=== PATIENT | female | born 1965 | race Caucasian/White ===

== ENCOUNTER 2016-12-07 07:15 | Day surgery (SDC) | payer OTHER ==
[~2016-12-07] VITALS: Ht 167.6 cm; Wt 75.3 kg
[2016-12-07 08:38] VITALS: Ht 167.6 cm; Wt 75.3 kg
[2016-12-07] MEDS ORDERED: LIDOCAINE 2% (SDV) 5 ML INJ ONE (09:11)
[2016-12-07] MEDS ORDERED: PROPOFOL 40 ML ONE (09:11)
[2016-12-07 09:17] VITALS: BP 124/80; PULSE 74; RESP 18
[2016-12-07] MEDS ORDERED: HYDROCODONE (09:17)
[2016-12-07] MEDS ORDERED: SPRIVA (09:17)
[2016-12-07] MEDS ORDERED: MONTELUKAST (09:17)
[2016-12-07] MEDS ORDERED: CALCIUM CARBONATE (09:17)
[2016-12-07] MEDS ORDERED: INHALER (09:17)
--- NOTE | 2016-12-07 09:46 | OPPN ---
Date/Time of Note Date/Time of Note DATE: 12/07/16 TIME: 09:40 Proc Note GI Procedure date: Dec 07, 2016 Pre-procedure Diagnosis History of dysphagia and vomiting rule out gastroesophageal reflux disease rule out peptic ulcer disease Post-procedure Diagnosis Mild reflux esophagitis and gastric erosions Operation Performed EGD Surgeon: JOSE PHELAN MD Anesthesiologist: TREVER ALBARRAN Estimated blood loss: none Transfusion Required: no Specimens Gastric biopsy and esophageal biopsy Complications: no Complications None Indications History of nausea vomiting and dysphagia rule out gastroesophageal reflux disease rule out peptic ulcer disease Operative\Procedure Findings Mild reflux esophagitis and gastric erosions Procedure Description After informed written consent is obtained patient was ostial in the left lateral side intravenous anesthesia was given by anesthesiologist Dr. Ethan Haddad. When the patient become somnolent Olympus video upper endoscope was introduced into the oropharynx then into the esophagus esophagus showed minimal reflux esophagitis biopsies were obtained to rule out Bansal's esophagus [place] with the stem was advanced into the stomach multiple erosions were noted in the antrum of the stomach Biopsy was done from the antrum the lesser curvature in the fundus to rule out H. pylori infection rest of the stomach was examined thoroughly which appeared normal Scope with the stem was advanced into the duodenum and duodenal mucosa appeared normal up to the end of the third portion Endoscope at this time was withdrawn and the procedure was terminated And recommend proton pump inhibitor therapy Wait for the pathology report cc dr mcmillan by JOSE Brewer MD Dec 07, 2016 09:46
--- NOTE | 2016-12-07 09:49 | OPPN ---
Date/Time of Note Date/Time of Note DATE: 12/07/16 TIME: 09:46 Proc Note GI Procedure date: Dec 07, 2016 Pre-procedure Diagnosis Screening colonoscopy Post-procedure Diagnosis Small polyp noted at 10 cm from the anus this was removed with the help of the biopsy forceps Diverticulosis noted all along the colon with no bleeding Operation Performed Colonoscopy Surgeon: JOSE PHELAN MD Anesthesiologist: TREVER ALBARRAN Estimated blood loss: none Transfusion Required: no Specimen: none Complications: no Complications None Pt Condition post procedure: stable Indications Rule out colon polyps Operative\Procedure Findings After informed written consent is obtained patient was ostial in the left lateral side. The venous anesthesia was given by anesthesiology Dr. Queen in The patient become somnolent Olympus videocolonoscope was introduced into the rectum and scope was advanced all the way to the cecum. Diverticulosis noted all in the colon is small in size and not actively bleeding. On the way out further evaluation was carefully carried out. Small 2 mm polyp was noted in the fold at the 10 cm from the anus this was biopsied. Retroflexion was performed no internal hemorrhoids were noted and the scope was withdrawn no and external hemorrhoids were noted At this time procedure was determined Plan wait for the pathology report She probably needs a repeat colonoscopy in [address], MD Dec 07, 2016 09:49
== END 2016-12-07 11:16 | disposition home or self-care (01) ==
LOC: GIL 07:15
PROVIDERS: ATTEND Internal Medicine Gastroenterology
DX: Z12.11 Encounter for screening for malignant neoplasm of colon (principal); K57.30 Diverticulosis of large intestine without perforation or abscess without bleeding; D12.6 Benign neoplasm of colon, unspecified; K21.0 Gastro-esophageal reflux disease with esophagitis; K25.9 Gastric ulcer, unspecified as acute or chronic, without hemorrhage or perforation; J45.909 Unspecified asthma, uncomplicated; J44.9 Chronic obstructive pulmonary disease, unspecified
CPT/HCPCS: 43239; 45380; 88305; 88312; Z7610

== ENCOUNTER 2018-11-23 11:57 | Day surgery (SDC) | payer OTHER ==
[2018-11-23] VITALS (13 sets, daily range): BP systolic 90–118; BP diastolic 43–80; PULSE 86–106; RESP 15–18; Ht 167.6 cm; Wt 67.0 kg
[~2018-11-23] VITALS: Ht 167.6 cm; Wt 67.0 kg
[~2018-11-23 11:57] MED LIST: ALBU18HF INH; ALBU2.5V3 NEB; CALCIUM CARBONATE; CYAN100080 PO; FER325 ORAL; HYDR25TA6 PO; HYDR30CR75 PR; HYDROCODONE; INHALER; IPRA3AMP29 NEB; KEN25O TOP; LORA10TA3 PO; MAGN400T27 ORAL; MONT10TA24 ORAL; MONTELUKAST; PYRI50CA PO; ROPI1TAB ORAL; SPRIVA; SUMA100T4 ORAL
[2018-11-23] MEDS ORDERED: CEFAZOLIN 2 GM/50 ML (PMX) 50 ML IVPB ONE (13:00)
[2018-11-23] MEDS ORDERED: SOD CHLORIDE 0.9% 1,000 ML IV ONE (13:00)
--- NOTE | 2018-11-23 15:23 | HPN ---
Date/Time of Note Date/Time of Note DATE: 11/23/18 TIME: 15:23 Interval H&P Admission Note Pt. seen H&P reviewed: No system changes SALENA MONTENEGRO MD Nov 23, 2018 15:23
--- NOTE | 2018-11-23 15:34 | PREAC ---
Date/Time of Note Date/Time of Note DATE: 11/23/18 TIME: 15:32 Anesthesia Eval and Record Evaluation Time Pre-Procedure Interview DATE: 11/23/18 TIME: 15:32 Age 53 Sex female NPO: 8 hrs Preoperative diagnosis chronic gluteal abscess Planned procedure excision of chronic gluteal abscess Past Medical History Past Medical History: Includes Cardio: HTN Pulm: COPD, Asthma Neuro: Other (fibromyalgia) Heme: Anemia Psych: Depression, Anxiety Surgery & Anesthesia Issues No known issue Meds Anticoagulation: No Beta Natasha within 24 hr: No Reason Beta Natasha not given: Pt. not on B-Natasha Reported Medications Pyridoxine Hcl* (Vitamin B-6*) 50 Mg Capsule, 50 MG PO DAILY, CAP 11/23/18 Cyanocobalamin* (Vitamin B-12*) 1,000 Mcg Tablet.sa, 1000 MCG PO DAILY, TAB 11/23/18 Triamcinolone Acetonide* (Kenalog*) 0.025%-15GM Oint, 1 TOP BID 11/23/18 Sumatriptan Succinate* (Sumatriptan Succinate*) 100 Mg Tablet, 0.5 TAB ORAL DAILY MR IN 2 HOURIF H/A RETUNRS. 11/23/18 Montelukast Sodium* (Montelukast Sodium*) 10 Mg Tablet, 1 TAB ORAL DAILY 11/23/18 Ropinirole Hcl* (Ropinirole Hcl*) 1 Mg Tablet, 0.5 TAB ORAL QHS 11/23/18 Albuterol Sulfate* (Ventolin HFA*) 18 Gm Hfa.aer.ad, 2 PUFFS INH Q4 PRN for SHORTNESS OF BREATH 11/23/18 Magnesium Oxide* (Mag-Oxide*) 400 Mg Tablet, 1 TAB ORAL QHS 11/23/18 Ferrous Sulfate* (Ferrous Sulfate*) 325 Mg Tabec, 1 TAB ORAL BID 11/23/18 Ipratropium-Albuterol (Ipratropium-Albuterol) 0.5-3 Mg/3 Ml Ampul.neb, 1 UNIT NEB Q6 PRN for SHORTNESS OF BREATH 11/23/18 Hydrochlorothiazide* (Hydrochlorothiazide*) 25 Mg Tab, 25 MG PO DAILY, #30 TAB 11/23/18 Loratadine* (Loratadine*) 10 Mg Tablet, 10 MG PO DAILY, #30 TAB 11/23/18 Hydrocortisone Acetate* (Anusol-HC*) 30 Gm Cream.gm., 1 APPLIC [place] BID, TUB 11/23/18 Albuterol Sulfate* (Albuterol Sulfate* Neb) 0.083%-3 Ml Neb, 1 UNIT NEB TID 11/23/18 Discontinued Reported Medications [Calcsium-Carbonate] No Conflict Check 12/07/16 [Spriva] No Conflict Check 12/07/16 [Hydrocodone] No Conflict Check 12/07/16 [Inhaler] No Conflict Check 12/07/16 [Montelukast] No Conflict Check 12/07/16 Current Medications Sodium Chloride 1,000 ml @ 75 mls/hr [id number] ONCE IV ; Start 11/23/18 at 13:00; Stop 11/24/18 at 02:19 Meds reviewed: Yes Allergies Coded Allergies: Phenothiazines (Verified Adverse Reaction, Severe, 11/23/18) Allergies Reviewed: Yes Labs/Studies Labs Reviewed: Reviewed by anesthesiologist test: Negative Studies: ECG, CXR Pre-procedure Exam Last vitals Vital Signs Date Temp Pulse Resp B/P (MAP) Pulse Ox O2 O2 Flow FiO2 Time Delivery Rate 11/23/18 97.6 95 16 118/80 93 Room Air 14:28 (93) Airway: Adequate mouth opening, Adequate thyromental dist Mallampati: Mallampati II Teeth: Normal Lung: Normal Heart: Normal ASA Physical Status ASA physical status: 3 Emergency: None Planned Anesthetic General/MAC: ETT Neuraxial: Other (suggested spinal anesthesia given severe COPD. However, patient refused as she has severe anxiety. Patient understands the risks of possibly having pulmonary complications including prolonged intubation but still requests to have only general anesthesia ) Planned Pain Management Parenteral pain med Pre-operative Attestations Prior to commencing anesthesia and surgery, the patient was re-evaluated, there was verification of: *The patient's identity *The results of appropriate recent lab work and preoperative vital signs *The above evaluation not changing prior to induction *Anesthetic plan, risk benefits, alternative and complications discussed with patient/family; questions answered; patient/family understands, accepts and wishes to proceed. RAS PRABHAKAR MD Nov 23, 2018 15:34
[2018-11-23] MEDS ORDERED: BUPIVACAINE 0.5%/EPI (SDV) 30 ML INJ ONE (15:42)
[2018-11-23] MEDS ORDERED: ONDANSETRON 4 MG INJ IV PRN ×2 (16:00→17:30)
[2018-11-23] MEDS ORDERED: HYDROmorphONE 1 MG/5 ML IV SYRINGE IV PRN ×3 (16:00)
[2018-11-23] MEDS ORDERED: MEPERIDINE 25 MG INJ IV PRN (16:00)
[2018-11-23] MEDS ORDERED: DIPHENHYDRAMINE 50 MG INJ IV PRN (16:00)
[2018-11-23] MEDS ORDERED: FENTAnyl 50 MCG/ML VIAL IV PRN ×2 (16:00)
[2018-11-23] MEDS ORDERED: ALBUTEROL 0.083% (NEB) 2.5 MG/3 ML AMP ONE (16:06)
[2018-11-23] MEDS ORDERED: PROVENTIL HFA 6.7GM INHALER ONE (16:07)
[2018-11-23] MEDS ORDERED: MIDAZOLAM 1 MG/ML 2 ML INJ ONE (16:07)
[2018-11-23] MEDS ORDERED: ROCURONIUM 50 MG INJ ONE (16:10)
[2018-11-23] MEDS ORDERED: SUCCINYLCHOLINE CHLORIDE 100 MG/5 ML SYG IV ONE (16:10)
[2018-11-23] MEDS ORDERED: PROPOFOL 20 ML ONE ×2 (16:10→16:41)
[2018-11-23] MEDS ORDERED: LIDOCAINE 2% (SDV) 5 ML INJ ONE (16:10)
[2018-11-23] MEDS ORDERED: FENTAnyl 50 MCG/ML VIAL ONE (16:13)
[2018-11-23] MEDS ORDERED: BUPIVACAINE 0.25% (MPF) 30 ML INJ ONE (16:33)
[2018-11-23] MEDS ORDERED: EPHEDrine 25 MG/5 ML SYG ONE (16:35)
[2018-11-23] MEDS ORDERED: PHENYLephrine (100 MCG/ML) 10ML SYG ONE (16:35)
[2018-11-23] MEDS ORDERED: CEFAZOLIN 1 GM INJ ONE (16:37)
[2018-11-23] MEDS ORDERED: DEXAMETHASONE 4 MG/ML 5 ML INJ ONE (16:42)
[2018-11-23] MEDS ORDERED: ONDANSETRON 4 MG INJ ONE (16:42)
[2018-11-23] MEDS ORDERED: SUGAMMADEX SODIUM 200 MG/2 ML VIAL IV ONE ×2 (17:01→17:05)
[2018-11-23] MEDS ORDERED: BACITRACIN 0.9 GM OINT ONE (17:01)
--- NOTE | 2018-11-23 17:13 | OPR ---
Date/Time of Note Date/Time of Note DATE: 11/23/18 TIME: 17:04 Operative Report Procedure Date: Nov 23, 2018 Preoperative Diagnosis Recurrent gluteal abscess Postoperative Diagnosis Recurrent gluteal abscess Operation/Procedure Performed 1. Excision of chronic recurrent gluteal abscess 2. Creation of local advancement flaps 3. Implantation of biological extracellular matrix Surgeon see signature line Phosphoric Acid Operator None Anesthesia Type: general Anesthesiologist: RAS PRABHAKAR MD Estimated Blood Loss: minimal Transfusion none Specimen Chronic gluteal abscess excision Grafts/Implants Amnio fill biological extracellular matrix 500 mg Complications none Pt Condition Post Procedure: stable Disposition: PACU Indications The patient is a 53-year-old female with multiple comorbidities who presented to the office with recurrent gluteal abscesses which had been occurring over the past 15 years. She reported recurrent infections which usually resolved by either spontaneous drainage or incision and drainage in the emergency room. She reported that she gets these once a month. An ultrasound was done which did not show any pilonidal cysts, but chronic inflammation and induration. The patient visited the office during 1 of her acute phases where the abscess was directly visualized to be slightly to the right of the most superior aspect of the gluteal cleft. The patient was therefore scheduled for elective excision of the chronic abscess area. All risks and benefits of the procedure including, but not limited to: Wound infection, excessive bleeding, postoperative seroma/hematoma formation, prolonged wound healing, need for met iculous hygiene of the area in order to keep the area hair free, cyst/sinus/abscess recurrence, etc. were all explained to the patient in full detail. The patient is an active smoker with COPD. The increased risks of prolonged wound healing and effects from smoking were discussed with her. Smoking cessation was advised. However, the patient did not quit smoking. She accepted the increased risks, and wished to proceed with the procedure. Informed consent was obtained. Patient was cleared both by her primary care physician and gin feeder prior to the procedure. Procedure Description Patient was brought to the operating room and kept on her operating room stretcher. Bilateral sequential compression devices were placed on both lower extremities. A dose of broad-spectrum perioperative intravenous antibiotics was given. General anesthesia was induced with the patient on her stretcher. After the induction of smooth general endotracheal anesthesia the patient was then positioned in the prone jackknife position on the operating table. The buttocks was taped apart. The buttock area was then prepped and draped in standard surgical fashion. Just to the right of the midline at the most superior aspect of the gluteal cleft there was some induration identified with a prior incision and drainage site. The patient's prior acute infection had resolved. After performance of the surgical timeout 0.5% Marcaine was injected around the area of the incision. An elliptical incision was made using a 15 blade scalpel encompassing the prior incision and drainage site. Incision was taken down through the skin and into the subcutaneous tissues using Bovie electrocautery. There is some chronic scarring of the deep tissues identified, but no acute abs cess. Dissection was continued down to the level of the presacral fascia. The specimen was then transected at its base and passed off the field. Marking stitch was used to [place] the superior aspect. Local advancement flaps were then raised circumferentially to aid in tension-free closure. The wound cavity was then irrigated using antibiotic irrigation. Hemostasis was inspected for and noted to be total. To aid in wound regeneration and minimize the risk of infection 500 mg of acellular biological extracellular matrix was implanted on top of the presacral fascia and the deep tissues. The deep tissues were then reapproximated using interrupted 3-0 Vicryl sutures. The dermal layer was reapproximated using interrupted 3-0 Vicryl sutures. Further local anesthesia was applied around the skin of the incision site. The skin was reapproximated using interrupted 2-0 nylon sutures in vertical mattress fashion such that the incision laid just off the midline. Incision was then cleaned and sterile dressings were applied. The patient was then awoken from anesthesia and transported to the recovery room in stable condition. All counts were correct at the end of the case 2. SALENA MONTENEGRO MD Nov 23, 2018 17:13
--- NOTE | 2018-11-23 17:27 | PAC ---
Date/Time of Note Date/Time of Note DATE: 11/23/18 TIME: 17:26 Post-Anesthesia Notes Post-Anesthesia Note Last documented vital signs Vital Signs Date Temp Pulse Resp B/P (MAP) Pulse Ox O2 O2 Flow FiO2 Time Delivery Rate 11/23/18 97.6 95 16 118/80 93 Room Air 14:28 (93) Activity: WNL Respiratory function: WNL Cardiovascular function: WNL Mental status: Baseline Pain reasonably controlled: Yes Hydration appropriate: Yes Nausea/Vomiting absent: Yes Comments BP: 106/53 HR: 99 RR: 15 T: 98 SaO2: 95% RAS CASTILLO MD Nov 23, 2018 17:27
[2018-11-23] MEDS ORDERED: ALBUTEROL 0.083% (NEB) 2.5 MG/3 ML AMP HHN PRN (17:30)
[2018-11-23] MEDS ORDERED: MIDAZOLAM 1 MG/ML 2 ML INJ IV PRN (17:30)
[2018-11-23] MEDS ORDERED: IBUPROFEN 600 MG TAB PO PRN (17:30)
[2018-11-23] MEDS ORDERED: KETOROLAC 30 MG INJ IV PRN (17:30)
[2018-11-23] MEDS ORDERED: HYDROCODONE/APAP (5/325) TAB ONE (18:17)
[2018-11-23] MEDS ORDERED: HYDROCODONE/APAP (5/325) TAB PO STA (18:18)
[2018-11-23] MEDS ORDERED: HYDROCODONE/APAP (5/325) TAB PO ONE (18:30)
== END 2018-11-23 18:37 | disposition home or self-care (01) ==
LOC: SDS 11:57
PROVIDERS: ATTEND Surgery
DX: L02.31 Cutaneous abscess of buttock (principal); J44.9 Chronic obstructive pulmonary disease, unspecified; I10 Essential (primary) hypertension; J45.909 Unspecified asthma, uncomplicated; F17.200 Nicotine dependence, unspecified, uncomplicated; Z71.6 Tobacco abuse counseling; Z80.1 Family history of malignant neoplasm of trachea, bronchus and lung; Z80.8 Family history of malignant neoplasm of other organs or systems
CPT/HCPCS: 84703; 88304; J0690; J1100; J2250; J2370; J2405; J3010